=== PATIENT | female | born 1955 | race Caucasian/White ===

== ENCOUNTER 2016-07-17 00:58 | Observation (INO) | payer OTHER ==
[~2016-07-17] VITALS: Ht 162.6 cm; Wt 68.0 kg
[2016-07-17 05:58] LABS: BUN/CREATININE RATIO 20 (0-10)
[2016-07-17 06:29] LABS: HEMOGLOBIN 14.1 gm/dl (12.3-15.3); RED BLOOD COUNT 4.66 M/UL (4.00-5.10); WHITE BLOOD COUNT 4.5 K/UL (4.5-11.0)
[2016-07-17] MEDS ORDERED: AMOXICILLIN500 MG PO (16:41)
[2016-07-17] MEDS ORDERED: FISH OIL 1,0001 EAC1 PO (16:41)
[2016-07-17] MEDS ORDERED: LISINOPRIL20 MG PO (16:44)
[2016-07-17] MEDS ORDERED: NORVASC 5 MG TAB5 MG PO (16:45)
[2016-07-17] MEDS ORDERED: LOPRESSOR50 MG PO (16:45)
[2016-07-17] MEDS ORDERED: IBUPROFEN600 MG PO (16:46)
[2016-07-18 06:51] LABS: HEMOGLOBIN 15.2 gm/dl (12.3-15.3); RED BLOOD COUNT 4.96 M/UL (4.00-5.10)
[2016-07-18 06:53] LABS: WHITE BLOOD COUNT 2.9 K/UL (4.5-11.0)
[2016-07-18 07:01] LABS: BUN/CREATININE RATIO 16 (0-10)
[2016-07-19 06:19] LABS: BUN/CREATININE RATIO 20 (0-10)
[2016-07-19 06:20] LABS: HEMOGLOBIN 13.7 gm/dl (12.3-15.3); RED BLOOD COUNT 4.54 M/UL (4.00-5.10)
[2016-07-19 06:21] LABS: WHITE BLOOD COUNT 3.8 K/UL (4.5-11.0)
[2016-07-20 06:04] LABS: HEMOGLOBIN 13.5 gm/dl (12.3-15.3); RED BLOOD COUNT 4.47 M/UL (4.00-5.10)
[2016-07-20 06:14] LABS: BUN/CREATININE RATIO 23 (0-10)
[2016-07-20] MEDS ORDERED: AUGMENTIN 875-1 EACH PO (15:56)
[2016-07-20] MEDS ORDERED: METRONIDAZOLE500 MG PO (15:58)
== END 2016-07-20 17:11 | disposition home or self-care (01) ==
LOC: ER1 00:58 → M/S 11:47 → ZEROF 11:47 → M/S 15:29 → ZEROF 07-20 15:53 → M/S 07-20 15:53
PROVIDERS: Family Medicine; ADMIT Internal Medicine Infectious Disease
DX: B34.9 Viral infection, unspecified (principal); G93.41 Metabolic encephalopathy; D61.818 Other pancytopenia; E86.0 Dehydration; E87.6 Hypokalemia; K05.10 Chronic gingivitis, plaque induced; I25.10 Atherosclerotic heart disease of native coronary artery without angina pectoris; I10 Essential (primary) hypertension; E78.5 Hyperlipidemia, unspecified; A59.00 Urogenital trichomoniasis, unspecified; S02.5XXA Fracture of tooth (traumatic), initial encounter for closed fracture; X58.XXXA Exposure to other specified factors, initial encounter; K02.9 Dental caries, unspecified; K21.9 Gastro-esophageal reflux disease without esophagitis; L72.3 Sebaceous cyst; F17.210 Nicotine dependence, cigarettes, uncomplicated; Z95.5 Presence of coronary angioplasty implant and graft; Z79.82 Long term (current) use of aspirin; Z79.899 Other long term (current) drug therapy
CPT/HCPCS: 36415; 70450; 70487; 71010; 80053; 80307; 81001; 82550; 82553; 83605; 83690; 83874; 84484; 85025; 85610; 85730; 86140; 86403; 87040; 87081; 87086; 87880; 93005; 96361; 96365; 99285; G0378; G0480; J0295; J2405; J2543; J7050; Q9962

== ENCOUNTER 2020-04-25 12:12 | Emergency (ER) | payer MEDICARE, OTHER ==
[~2020-04-25 12:12] MED LIST: AMOXICILLIN500 MG PO; AUGMENTIN 875-1 EACH PO; FISH OIL 1,0001 EAC1 PO; FLEXERIL 10 MG10 MG PO; IBUPROFEN600 MG PO; LISINOPRIL20 MG PO; LOPRESSOR50 MG PO; METRONIDAZOLE500 MG PO; NORVASC 5 MG TAB5 MG PO; PREDNISONE 50 M50 MG PO; Voltaren Gel 1 % TOP
[2020-04-25] MEDS ORDERED: ERYTHROMYCIN O3.5 GM OU (13:25)
== END 2020-04-25 14:15 | disposition home or self-care (01) ==
LOC: ER1 12:12
DX: S05.02XA Injury of conjunctiva and corneal abrasion without foreign body, left eye, initial encounter (principal); H11.32 Conjunctival hemorrhage, left eye; I10 Essential (primary) hypertension; F17.200 Nicotine dependence, unspecified, uncomplicated; Z88.0 Allergy status to penicillin; W20.8XXA Other cause of strike by thrown, projected or falling object, initial encounter; Y92.009 Unspecified place in unspecified non-institutional (private) residence as the place of occurrence of the external cause
CPT/HCPCS: 99283